=== PATIENT | female | born 1970 | race Two or more races ===

== ENCOUNTER 2019-11-08 07:35 | Inpatient (IN) | payer OTHER ==
[~2019-11-08] VITALS: Ht 160 cm; Wt 68.0 kg
[~2019-11-08 07:35] MED LIST: AMBIEN10 MG PO; LAMISIL PO; NASAL MIST126 ML; [UNRECOGNIZED DRUG - OTHER] PO
[2019-11-09] MEDS ORDERED: TERBINAFINE HC250 MG PO (07:57)
[2019-11-09] MEDS ORDERED: OMEGA-3 FISH O1 EA11 (07:58)
[2019-11-09] MEDS ORDERED: ESGIC CAPSULE1 EACH PO (08:00)
[2019-11-15] MEDS ORDERED: HYOSCYAMINE0.125 M1 SL (11:00)
[2019-11-15] MEDS ORDERED: NORFLEX100MG PO (11:00)
[2019-11-15] MEDS ORDERED: ANTI-GAS166 MG PO (11:01)
[2019-11-15] MEDS ORDERED: OXYC1TAB9 PO (11:01)
[2019-11-15] MEDS ORDERED: GABAPENTIN300 MG PO (11:01)
[2019-11-15] MEDS ORDERED: POLY119PG PO (11:02)
[2019-11-15] MEDS ORDERED: RESTORIL30 M1 PO (11:07)
== END 2019-11-15 11:38 | disposition home or self-care (01) | DRG 336 ==
LOC: CIR.AMB 07:35 → SURG 16:51 → O/R 16:51 → SURG 17:15
PROVIDERS: ADMIT Surgery
PROC: 0WUF4JZ Supplement Abdominal Wall with Synthetic Substitute, Percutaneous Endoscopic Approach (ICD-10-PCS; 2019-11-08)
PROC: BW21ZZZ Computerized Tomography (CT Scan) of Abdomen and Pelvis (ICD-10-PCS; 2019-11-08)
PROC: 0DNW4ZZ Release Peritoneum, Percutaneous Endoscopic Approach (ICD-10-PCS; principal; 2019-11-08 07:00)
DX: K43.6 Other and unspecified ventral hernia with obstruction, without gangrene (principal); K56.0 Paralytic ileus; K91.89 Other postprocedural complications and disorders of digestive system; K66.0 Peritoneal adhesions (postprocedural) (postinfection)